=== PATIENT | female | born 2005 | race Caucasian/White ===

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

== ENCOUNTER 2025-03-02 07:32 | Emergency (ER) | payer OTHER ==
[~2025-03-02] VITALS: Ht 170.2 cm; Wt 70.3 kg
[~2025-03-02 07:32] MED LIST: OMEPRAZOLE20 MG PO
[2025-03-02] MEDS ORDERED: AMOXICILLIN500 MG PO (08:04)
[2025-03-02] MEDS ORDERED: OXYMETAZOLINE HCL 30 ML BTL NAS ONE (08:15)
[2025-03-02 08:16] VITALS: BP 128/91
== END 2025-03-02 08:14 | disposition home or self-care (01) ==
LOC: ED 07:32
DX: H65.92 Unspecified nonsuppurative otitis media, left ear (principal)
CPT/HCPCS: 99282